=== PATIENT | female | born 1990 | race Caucasian/White ===

== ENCOUNTER 2018-02-16 10:49 | Emergency (ER) | payer MEDICAID ==
[~2018-02-16] VITALS: Ht 167.6 cm; Wt 66.0 kg
[~2018-02-16 10:49] MED LIST: BACT800T5 PO; DOXY100T PO
[2018-02-16 10:53] VITALS: BP 127/76; PULSE 91; RESP 16; TEMP 98.6; O2SAT 99
--- NOTE | 2018-02-16 10:55 | PD ---
HPI Chief Complaint: GI Complaint Time Seen by Provider: 10:55 Travel History International Travel<30 days: No Contact w/Intl Traveler<30days: No Traveled to known affect area: No History of Present Illness HPI 27-year-old male came to the emergency room with history of headache, nausea since last night. Patient says she is about 12 weeks . She has not seen an OB yet and has not appointment coming up in another 10 days. Patient has been nauseous and vomited intermittently in her so far. Patient is A0. No pelvic cramps or spotting. No history of fever or chills. No history of diarrhea. Vital signs are stable. Patient usually does not get headaches. Currently the headache is on the left temporal area with no aggravating or relieving factors identified. Patient rates the pain a 7 out of 10. She is otherwise a healthy person. PFS Past Medical History Narrative Medical List of her past medical, surgical, social and family history is reviewed from the nursing note. Diminished Hearing: No Immunizations Current: No ?: : 1 Social History Alcohol Use: Yes (occ) Tobacco Use: No Substance Use: No Allergies-Medications (Allergen,Severity, Reaction): Coded Allergies: No Known Allergies (Verified Adverse Reaction, Unknown, 02/16/18) Comments No known drug allergies. Reported Meds & Prescriptions Reported Meds & Active Scripts Active Macrobid (Nitrofurantoin Monoh/Nitrofur Macro) 100 Mg Cap 100 Mg PO BID 10 Days Reported Plus Iron 29-1 mg ( Vit-Iron Carbonyl) 29 Mg Iron-1 Mg Tab 1 Tab PO DAILY Narrative Medication List of her home medications reviewed from the nursing note Review of Systems Except as stated in HPI: all other systems reviewed are Neg HENT: Positive: Headaches Gastrointestinal: Positive: Nausea Physical Exam Narrative GENERAL: Awake, alert, mild distress SKIN: Focused skin assessment warm/dry. HEAD: Atraumatic. Normocephalic. EYES: Pupils equal and round. No scleral icterus. No injection or drainage. ENT: No nasal bleeding or discharge. Mucous membranes pink and moist. NECK: Trachea midline. No JVD. Neck is supple with no meningismus CARDIOVASCULAR: Regular rate and rhythm. No murmur appreciated. RESPIRATORY: No accessory muscle use. Clear to auscultation. Breath sounds equal bilaterally. GASTROINTESTINAL: Abdomen soft, non-tender, nondistended. Hepatic and splenic margins not palpable. MUSCULOSKELETAL: No obvious deformities. No clubbing. No cyanosis. No edema. NEUROLOGICAL: Awake and alert. No obvious cranial nerve deficits. Motor grossly within normal limits. Normal speech. PSYCHIATRIC: Appropriate mood and affect; insight and judgment normal. Data Data Last Documented VS Vital Signs Date Time Temp Pulse Resp B/P (MAP) Pulse Ox O2 Delivery O2 Flow Rate FiO2 02/16/18 12:39 02/16/18 11:38 83 18 98 Room Air 02/16/18 10:53 98.6 Orders Orders Complete Blood Count With Diff (02/16/18 11:14) Basic Metabolic Panel (Bmp) (02/16/18 11:14) Ecg Monitoring (02/16/18 11:14) Iv Access Insert/Monitor (02/16/18 11:14) Oximetry (02/16/18 11:14) Sodium Chloride 0.9% Flush (Ns Flush) (02/16/18 11:15) Prochlorperazine Inj (Compazine Inj) (02/16/18 11:15) Sodium Chlor 0.9% 1000 Ml Inj (Ns 1000 M (02/16/18 11:14) Urinalysis - C+S If Indicated (02/16/18 11:14) Urine Culture (02/16/18 11:15) Nitrofurantoin Monohyd Macrocr (Macrobid (02/16/18 12:00) Ed Discharge Order (02/16/18 12:23) Labs Laboratory Tests Test 02/16/18 11:15 White Blood Count 10.9 TH/MM3 Red Blood Count 3.91 MIL/MM3 Hemoglobin 11.7 GM/DL Hematocrit 34.6 % Mean Corpuscular Volume 88.6 FL Mean Corpuscular Hemoglobin 30.0 PG Mean Corpuscular Hemoglobin Concent 33.8 % Red Cell Distribution Width 11.4 % Platelet Count 235 TH/MM3 Mean Platelet Volume 7.7 FL Neutrophils (%) (Auto) 79.2 % Lymphocytes (%) (Auto) 15.7 % Monocytes (%) (Auto) 4.0 % Eosinophils (%) (Auto) 0.8 % Basophils (%) (Auto) 0.3 % Neutrophils # (Auto) 8.7 TH/MM3 Lymphocytes # (Auto) 1.7 TH/MM3 Monocytes # (Auto) 0.4 TH/MM3 Eosinophils # (Auto) 0.1 TH/MM3 Basophils # (Auto) 0.0 TH/MM3 CBC Comment DIFF FINAL Differential Comment Urine Collection Type CLEAN CATCH Urine Color YELLOW Urine Turbidity CLEAR Urine pH 6.0 Urine Specific [place] 1.025 Urine Protein NEG mg/dL Urine Glucose (UA) NEG mg/dL Urine Ketones TRACE mg/dL Urine Occult Blood NEG Urine Nitrite NEG Urine Bilirubin NEG Urine Urobilinogen 0.2 MG/DL Urine Leukocyte Esterase MOD Urine RBC 4-9 /hpf Urine WBC 20-24 /hpf Urine Squamous Epithelial Cells > 8 /hpf Urine Bacteria FEW /hpf Microscopic Urinalysis Comment CULTURE INDICATED Urine Collection Time 11:15 Blood Urea Nitrogen 11 MG/DL Creatinine 0.61 MG/DL Random Glucose 82 MG/DL Calcium Level 8.9 MG/DL Sodium Level 139 MEQ/L Potassium Level 3.7 MEQ/L Chloride Level 105 MEQ/L Carbon Dioxide Level 24.6 MEQ/L Anion Gap 9 MEQ/L Estimat Glomerular Filtration Rate 117 ML/MIN MDM Medical Decision Making Medical Screen Exam Complete: Yes Emergency Medical Condition: Yes Medical Record Reviewed: Yes Differential Diagnosis Migraine, headache NOS, dehydration, related headache Narrative Course 12:29 PM patient was given IV fluid and IV Compazine for headache. Blood test results and UA came back. Blood test is within normal limits. UA suggestive of UTI. I have given her dose of Macrobid. I went back and reassessed her and she says her headache is gone and is 0 out of 10 currently. I explained to her the test results and the need for antibiotic treatment. Patient understands. She will be discharged. Procedures EKG Prior to Arrival: No Diagnosis Primary Impression: Qualified Codes: Z3A.12 - 12 weeks gestation of Additional Impressions: Headache Qualified Codes: R51 - Headache UTI (urinary tract infection) Qualified Codes: N39.0 - Urinary tract infection, site not specified Referrals: Primary Care Physician Additional Instructions: Take the medication as per the prescription direction. Drink lots of fluid. Return to the ER if condition worsens or any other new concerns. Do not watch TV, computer screen or smart phone for another 24-48 hours of the to give rest to your eyes and brain. Med/Other Pt SpecificInfo: Prescription(s) given Scripts Nitrofurantoin Monohydrate Macrocrystals (Macrobid) 100 Mg Cap 100 MG PO BID for Infection for 10 Days, #20 CAP 0 Refills Prov: Gary Reeves MD 02/16/18 Disposition: 01 DISCHARGE HOME Condition: Stable aGry Reeves MD Feb 16, 2018 10:55
[2018-02-16] MEDS ORDERED: PREN29TA PO (11:13)
[2018-02-16] MEDS ORDERED: SODIUM CHLOR 0.9% 1000 ML INJ 1,000 ML IV ONE (11:14)
[2018-02-16] MEDS ORDERED: SODIUM CHLORIDE 0.9% FLUSH 10 ML FLUSH IVF PRN (11:15)
[2018-02-16] MEDS ORDERED: PROCHLORPERAZINE INJ 10 MG/2 ML VIAL IVP ONE (11:15)
[2018-02-16 11:29] LABS: AUTOMATED NEUTROPHIL # 8.7 TH/MM3 (1.8-7.7); BASOPHIL % 0.3 % (0.0-2.0); EOSINOPHIL # 0.1 TH/MM3 (0-0.4); EOSINOPHIL % 0.8 % (0.0-4.0); HEMATOCRIT 34.6 % (35.0-46.0); HEMOGLOBIN 11.7 GM/DL (11.6-15.3); LYMPH % 15.7 % (9.0-44.0); LYMPHOCYTE # 1.7 TH/MM3 (1.0-4.8); MEAN CELL VOLUME 88.6 FL (80.0-100.0); MEAN CORPUSCULAR HGB CONC 33.8 % (32.0-36.0); MEAN PLATELET VOLUME 7.7 FL (7.0-11.0); MONOCYTE # 0.4 TH/MM3 (0-0.9); NEUT % 79.2 % (16.0-70.0); PLATELET COUNT 235 TH/MM3 (150-450); RED BLOOD COUNT 3.91 MIL/MM3 (4.00-5.30); RED CELL DISTRIBUTION WIDTH 11.4 % (11.6-17.2); WHITE BLOOD COUNT 10.9 TH/MM3 (4.0-11.0)
[2018-02-16 11:31] LABS: BILIRUBIN, URINE NEG (NEG); BLOOD, URINE NEG (NEG); GLUCOSE,URINE NEG (NEG); KETONE, URINE TRACE mg/dL (NEG); NITRITE,URINE NEG (NEG); URINE COLOR YELLOW (YELLW/STRAW); URINE LEUKOCYTE ESTERASE MOD (NEG)
[2018-02-16 11:38] VITALS: BP 102/61; PULSE 83; RESP 18; O2SAT 98
[2018-02-16 11:39] LABS: BICARBONATE 24.6 MEQ/L (21.0-32.0); CALCIUM 8.9 MG/DL (8.5-10.1)
[2018-02-16 11:43] LABS: CREATININE 0.61 MG/DL (0.50-1.00)
[2018-02-16 11:45] LABS: SQUAMOUS EPITHELIAL CELL URINE > 8 /hpf (0-5)
[2018-02-16 11:46] LABS: BACTERIA, URINE FEW /hpf
[2018-02-16] MEDS ORDERED: NITROFURANTOIN MONOHYD MACROCR 100 MG CAP PO ONE (12:00)
[2018-02-16] MEDS ORDERED: MACR100C2 PO (12:25)
== END 2018-02-16 12:59 | disposition home or self-care (01) ==
LOC: PHED 10:49
DX: O23.41 Unspecified infection of urinary tract in pregnancy, first trimester (principal); O26.891 Other specified pregnancy related conditions, first trimester; R51 Headache; Z3A.12 12 weeks gestation of pregnancy; Z79.899 Other long term (current) drug therapy
CPT/HCPCS: 80048; 81001; 85025; 87086; 96361; 96374; 99284; J0780; J7030